=== PATIENT | female | born 1985 | race Caucasian/White ===

== ENCOUNTER → 2016-07-07 | Outpatient (CLI) | payer OTHER ==
--- NOTE | 2016-07-08 02:11 | REP ---
Clinical: Crush injury first toe. Technique: AP, lateral, bilateral oblique views to the left first toe. Findings: Evidence for prior surgical procedure involving the first metatarsal bone. Underlying age-related degenerative changes at the visualized interphalangeal joint spaces. No acute fracture dislocation. No significant swelling. No subcutaneous emphysema or significant foreign body. Impression: Age-related changes. No acute fracture or dislocation. Signed by Ten Cleary MD 07/08/2016 02:02 A
== END ==
LOC: M WUC 12:37
PROVIDERS: ATTEND Physician Assistant
DX: S97.112A Crushing injury of left great toe, initial encounter (principal); M13.88 Other specified arthritis, other site; X58.XXXA Exposure to other specified factors, initial encounter; Y92.89 Other specified places as the place of occurrence of the external cause; Y93.89 Activity, other specified; Y99.8 Other external cause status

== ENCOUNTER → 2018-05-05 | Outpatient (REF) | payer OTHER | LOC: M SFHCLERA 10:02 | PROVIDERS: ATTEND Physician Assistant | DX: J02.9 Acute pharyngitis, unspecified (principal) ==